=== PATIENT | male | born 1965 | race Caucasian/White ===

== ENCOUNTER 2018-06-27 12:59 | Emergency (ER) | payer MEDICAID ==
[~2018-06-27] VITALS: Ht 172.7 cm; Wt 73.8 kg
[2018-06-27 13:38] VITALS: BP 155/104; PULSE 133; RESP 18; Ht 172.7 cm; Wt 73.8 kg
[2018-06-27] MEDS ORDERED: HYDROCODONE/APAP (5/325) TAB PO ONE (16:00)
[2018-06-27] MEDS ORDERED: NEOMYC/POLYMYX/BACIT 30 GM OINT TOP ONE (16:00)
[2018-06-27] MEDS ORDERED: LIDOCAINE 1% (MDV) 20 ML INJ SC ONE (16:30)
[2018-06-27] MEDS ORDERED: SULF1TAB31 PO (16:46)
[2018-06-27] MEDS ORDERED: HYDR-4011 PO (16:46)
[2018-06-27] MEDS ORDERED: CEPH-443 PO (16:46)
[2018-06-27] MEDS ORDERED: TRIMETHOPRIM/SULFAMETHOX (DS) TAB PO ONE (17:30)
[2018-06-27] MEDS ORDERED: CEPHALEXIN 500 MG CAP PO ONE (17:30)
--- NOTE | 2018-06-27 17:54 | ERD ---
ER Documentation Chief Complaint Chief Complaint left 2nd finger pain,swelling,redness x 1 week HPI 53-year-old male presents with pain and swelling to his second left finger for the past 10 days. States that he went to another ER 10 days ago but they only gave him a shot of antibiotics. Denies history of trauma, fevers, chills. States the pain is 7 out of 10 worse with palpation and intermittent. Denies chest pain, diaphoresis, shortness of breath, syncopal episodes. Denies tingling or impaired range of motion. Denies past medical history. Denies allergies. Denies medications. Denies surgeries. Denies alcohol, tobacco, drug use. Up to date on vaccines. ROS All systems reviewed and are negative except as per history of present illness. Medications Home Meds Active Scripts Cephalexin* (Keflex*) 500 Mg Capsule, 500 MG PO QID for infection for 7 Days, CAP Prov:JUMANA MURRAY 06/27/18 Sulfamethoxazole/Trimethoprim* (Bactrim Ds* Tablet) 1 Each Tablet, 1 TAB PO BID for infection for 7 Days, #14 TAB Prov:JUMANA MURRAY 06/27/18 Hydrocodone/Acetaminophen (Drain 5-325 Tablet) 1 Each Tablet, 1 TAB PO Q6H PRN for PAIN, #7 TAB Prov:JUMANA MURRAY 06/27/18 Allergies Allergies: Coded Allergies: No Known Allergy (Unverified , 06/27/18) PMhx/Soc Medical and Surgical Hx: pt denies Medical Hx, pt denies Surgical Hx Hx Alcohol Use: Yes Hx Substance Use: Yes Hx Tobacco Use: Yes Smoking Status: Current some day smoker FmHx Family History: No diabetes, No coronary disease, No other Physical Exam Vitals Vital Signs Date Temp Pulse Resp B/P (MAP) Pulse Ox O2 O2 Flow FiO2 Time Delivery Rate 06/27/18 97.9 133 18 155/104 98 13:38 (121) Physical Exam Const: No acute distress Head: Atraumatic Eyes: Normal Conjunctiva ENT: Normal External Ears, Nose and Mouth. Neck: Full range of motion. No meningismus. Resp: Clear to auscultation bilaterally Cardio: Regular rate and rhythm, no murmurs Ext: Edema noted to the distal portion of the second left finger. Mass is fluctuant with no draining and associated ecchymosis overlying it. TTP. Distal sensation and range of motion is intact. Neur: Awake and alert Psych: Normal Mood and Affect Results 24 hrs Current Medications Medications Dose Sig/Jessica Start Time Status Last (Trade) Ordered Route PRN Stop Time Admin Dose Reason Admin 1 tab ONCE ONCE 06/27/18 DC 06/27/18 Acetaminophen PO 16:00 15:55 / 06/27/18 16:01 Hydrocodone Bitart (Drain (5/325)) Neomycin/ 1 applic ONCE ONCE 06/27/18 DC Polymyxin/ TOP 16:00 Bacitracin 06/27/18 16:01 (Neosporin Topical Oint) Lidocaine 20 ml ONCE ONCE 06/27/18 DC (Xylocaine SC 16:30 1% (Mdv) 20 06/27/18 16:31 ml) 1 tab ONCE ONCE 06/27/18 DC 06/27/18 Trimethoprim/ PO 17:30 17:15 06/27/18 17:31 Sulfamethoxaz ole (Bactrim (Ds)) Cephalexin 500 mg ONCE ONCE 06/27/18 DC 06/27/18 (Keflex) PO 17:30 17:15 06/27/18 17:31 Procedures/MDM EKG: Rate/Rhythm: Sinus Tachycardia QRS, ST, T-waves: No changes consistent w/ acute ischemia Impression: No evidence of ischemia or arrhythmia Abscess Incision and Drainage with irrigation by me: Location: DIP of 2nd left finger. Anesthesia: Local 1% Lidocaine Technique: Irrigated. Disrupted loculations w/ instrumentation Packing: None Complications: Neurovascularly intact post procedure 48 hour wound check. Scar minimization instructions given. Bactrim and Keflex given. 1 norco given. 53-year-old male presents with pain and swelling to his second left finger for the past 10 days. States that he went to another ER 10 days ago but they only gave him a shot of antibiotics. Denies history of trauma, fevers, chills. States the pain is 7 out of 10 worse with palpation and intermittent. Denies tingling or impaired range of motion. Presentation is consistent with a paronychia. Incision and drainage was performed without complication. Patient given 1 Bactrim and 1 Keflex in the ER and discharged with Rx for the same. Patient also given Rx for Drain for pain control. Patient told to follow-up in 2 days for wound check. Dressing was placed on wound. Low suspicion for any neurovascular compromise. In addition, EKG was performed due to patient's high p heart rate. EKG showed sinus tachycardia without any arrhythmia or signs of ischemia. Patient states that the tachycardia is most likely due to pain from his finger. I have low suspicion for any kind of cardiac pathology, myocardial infarction, arrhythmia, pericarditis, cardiac tamponade, shock, sepsis, or other emergent condition. Patient advised to follow-up with his primary care doctor regarding his episode of tachycardia. Patient discharged with strict ER precautions. Patient advised to follow up with PMD. All questions answered at discharge. Departure Diagnosis: Primary Impression: Paronychia Condition: Stable Patient Instructions: Abscess, Incision And Drainage, Paronychia Referrals: [facility] YOU HAVE RECEIVED A MEDICAL SCREENING EXAM AND THE RESULTS INDICATE THAT YOU DO NOT HAVE A CONDITION THAT REQUIRES URGENT TREATMENT IN THE EMERGENCY DEPARTMENT. FURTHER EVALUATION AND TREATMENT OF YOUR CONDITION CAN WAIT UNTIL YOU ARE SEEN IN YOUR DOCTORS OFFICE WITHIN THE NEXT 1-2 DAYS. IT IS YOUR RESPONSIBILITY TO MAKE AN APPOINTMENT FOR FOLOW-UP CARE. IF YOU HAVE A PRIMARY DOCTOR --you should call your primary doctor and schedule an appointment IF YOU DO NOT HAVE A PRIMARY DOCTOR YOU CAN CALL OUR PHYSICIAN REFERRAL HOTLINE AT IF YOU CAN NOT AFFORD TO SEE A PHYSICIAN YOU CAN CHOSE FROM THE FOLLOWING [facility] [address] [facility]. [facility] [address] [facility] [facility] [place] [address] [facility] [facility] [address] [facility] [facility] [address] [facility]. [facility]. [address] Additional Instructions: Return to this facility in 2 DAYS for a follow-up exam.Return sooner if your condition worsens. JUMANA MURRAY Jun 27, 2018 17:54
== END 2018-06-27 17:58 | disposition home or self-care (01) ==
LOC: FTE 12:59
DX: L03.012 Cellulitis of left finger (principal); F17.210 Nicotine dependence, cigarettes, uncomplicated
CPT/HCPCS: 26010; 93005; Z7502; Z7610

== ENCOUNTER 2018-07-20 20:58 | Emergency (ER) | payer MEDICAID ==
[~2018-07-20] VITALS: Wt 73.3 kg
[~2018-07-20 20:58] MED LIST: CEPH-443 PO; HYDR-4011 PO; SULF1TAB31 PO
[2018-07-20 21:02] VITALS: Wt 73.3 kg
--- NOTE | 2018-07-21 03:14 | ERD ---
ER Documentation Chief Complaint Chief Complaint RT foot pain s/p kicked an object [id number] ago HPI 53-year-old male, previously healthy, presents to the emergency department, complaining of right midfoot pain for 2 weeks after taking a solid object. The patient denies distal weakness, no numbness or tingling. The pain is dull, constant, worsened by ambulation and deep pressure, 6/10. No medications taken for pain. ROS All systems reviewed and are negative except as per history of present illness. Medications Home Meds Active Scripts Hydrocodone/Acetaminophen ([place] 5-325 Tablet) 1 Each Tablet, 1 TAB PO QHS PRN for PAIN, #7 TAB Prov:TYRON HUFFMAN MD 07/21/18 Ibuprofen* (Motrin*) 400 Mg Tab, 400 MG PO Q8, #15 TAB Prov:TYRON HUFFMAN MD 07/21/18 Acetaminophen* (Tylenol*) 325 Mg Tablet, 2 TAB PO Q8 PRN for PAIN AND OR ELEVATED TEMP, #20 TAB Prov:TYRON HUFFMAN MD 07/21/18 Cephalexin* (Keflex*) 500 Mg Capsule, 500 MG PO QID for infection for 7 Days, CAP Prov:JUMANA MURRAY 06/27/18 Sulfamethoxazole/Trimethoprim* (Bactrim Ds* Tablet) 1 Each Tablet, 1 TAB PO BID for infection for 7 Days, #14 TAB Prov:JUMANA MURRAY 06/27/18 Hydrocodone/Acetaminophen ([place] 5-325 Tablet) 1 Each Tablet, 1 TAB PO Q6H PRN for PAIN, #7 TAB Prov:JUMANA MURRAY 06/27/18 Allergies Allergies: Coded Allergies: No Known Allergy (Unverified , 06/27/18) PMhx/Soc Hx Alcohol Use: Yes Hx Substance Use: Yes Hx Tobacco Use: Yes Physical Exam Vitals Vital Signs Date Temp Pulse Resp B/P (MAP) Pulse Ox O2 O2 Flow FiO2 Time Delivery Rate 07/20/18 97.2 133 12 151/87 99 21:02 (108) Physical Exam Const: No acute distress Head: Atraumatic Eyes: Normal Conjunctiva ENT: Normal External Ears, Nose and Mouth. Neck: Full range of motion. No meningismus. Resp: Clear to auscultation bilaterally Cardio: Regular rate and rhythm, no murmurs Abd: Soft, non tender, non distended. Normal bowel sounds Skin: No petechiae or rashes Back: No midline or flank tenderness Ext: No cyanosis, or edema Neur: Awake and alert Psych: Normal Mood and Affect Results 24 hrs DIAGNOSTIC IMAGING REPORT Patient: DENILSON BENAVIDES : 1965 Age: 53 Sex: M MR #: [id number] DOS: 07/21/18 0312 Ordering MD: TYRON HUFFMAN MD Location: [facility]TE Room/Bed: PROCEDURE: XR Foot. CLINICAL INDICATION: Right foot trauma TECHNIQUE: 3 views of the right foot were obtained. COMPARISON: None. FINDINGS: Horizontal lucency through the medial first metatarsal sesamoid, more likely a bipartite sesamoid than fracture. Correlate clinically for tenderness. No other evidence for fracture or dislocation is seen. No foreign body is seen. No marked soft tissue swelling. . Minimal degenerative change of the first MTP joint. Small probable ossicles adjacent to the navicular. IMPRESSION: Horizontal lucency through the medial first metatarsal sesamoid, more likely a bipartite sesamoid than fracture. Correlate clinically for tenderness. RPTAT: [facility]BE Physician Queenie Date Time Electronically viewed and signed by Sera Wagner Physician on 07/21/2018 0 5:01 Procedures/MDM Differential diagnosis include but not limited to: Full sprain/strain, ligament injury, arthritis; low suspicion for fracture, dislocation, septic arthritis. Neurovascular exam grossly intact. no clinical findings suggestive of acute infectious process, no deformity, no rashes. Pertinent Data: X-rays: No fracture or dislocation Physical examination and clinical presentation consistent most likely with contusion of the right foot. Results and clinical impression discussed with patient who agrees with management. The patient is stable to be treated outpatient and will be discharged home with recommendations for ice, rest, NSAIDs 3 times daily for 5 days and close monitoring. The patient was instructed to follow up with the primary care provider in the next 48h. If symptoms persist, worsen or new symptoms develop, then patient should return to the ED immediately. Instructions explained and given to patient with acknowledgment and demonstrated understanding. Disclaimer: Inadvertent spelling and grammatical errors are likely due to EHR/dictation software use and do not reflect on the overall quality of patient care. Also, please note that the electronic time recorded on this note does not necessarily reflect the actual time of the patient encounter. Departure Diagnosis: Primary Impression: Injury of foot, right Condition: Stable Patient Instructions: Contusion, Foot Additional Instructions: Thank you very much for allowing us to participate in your care. Your health and safety is our top priority at [facility]. Call your primary care doctor TOMORROW for an appointment during the next 2-4 days and bring all the information and medications prescribed. Have prescriptions filled and follow precisely the directions on the label. If the symptoms get worse and your provider is unavailable, return to the Emergency Department immediately. TYRON HUFFMAN MD Jul 21, 2018 03:14
[2018-07-21] MEDS ORDERED: IBUP-1561 PO (05:12)
[2018-07-21] MEDS ORDERED: ACET325T33 PO (05:12)
[2018-07-21] MEDS ORDERED: HYDR-4011 PO (05:12)
[2018-07-21 05:28] VITALS: BP 137/98; PULSE 88; RESP 18
== END 2018-07-21 05:28 | disposition home or self-care (01) ==
LOC: FTE 20:58
DX: S99.921A Unspecified injury of right foot, initial encounter (principal); W22.8XXA Striking against or struck by other objects, initial encounter; Y92.9 Unspecified place or not applicable; Z87.891 Personal history of nicotine dependence
CPT/HCPCS: 73630; Z7502